=== PATIENT | male | born 1970 | race Caucasian/White ===

== ENCOUNTER 2016-08-07 13:10 | Emergency (ER) | payer OTHER ==
[2016-08-07 13:19] VITALS: BP 155/96; PULSE 69; TEMP 98.1; BMI 41.8
[2016-08-07] MEDS ORDERED: KETOROLAC TROMETHAMINE 60 MG/2 ML VIAL IM ONE (14:15)
[2016-08-07] MEDS ORDERED: KETOROLAC TROMETHAMINE 60 MG/2 ML VIAL ONE (14:18)
--- NOTE | 2016-08-07 14:32 | PDOC ---
History of Present Illness - General Chief Complaint: Pain Stated Complaint: LT ARM PAIN Time Seen by Provider: 08/07/16 13:30 History Source: Patient - History of Present Illness Occurred: reports: last week Severity: reports: moderate Upper Extremity Pain Location: left: shoulder Method of Injury: reports: other Past History - Past Medical History Allergies/Adverse Reactions: Allergies Allergy/AdvReac Type Severity Reaction Status Date / Time No Known Allergies Allergy Verified 08/07/16 13:17 Home Medications: Ambulatory Orders Ibuprofen [Motrin -] 800 mg PO Q6H #30 tablet 08/07/16 Asthma: Yes GI Disorders: Yes (DIVERTICULOSIS;DIVERTICULITIS) - Surgical History Orthopedic Surgery: Yes - Immunization History Immunization Up to Date: Yes - Psycho/Social/Smoking Cessation Hx Anxiety: No Suicidal Ideation: No Smoking History: Never smoked Have you smoked in the past 12 months: No Information on smoking cessation initiated: No Hx Alcohol Use: No Drug/Substance Use Hx: No Substance Use Type: None Hx Substance Use Treatment: No Review of Systems - Review of Systems Musculoskeletal: Yes: Joint Pain. No: Joint Swelling, Muscle Weakness Neurological: No: Numbness, Tingling *Physical Exam - Vital Signs Last Vital Signs Temp Pulse Resp BP Pulse Ox 98.1 F 69 18 155/96 100 08/07/16 13:17 08/07/16 13:17 08/07/16 13:17 08/07/16 13:17 08/07/16 13:17 - Physical Exam General Appearance: Yes: Appropriately Dressed. No: Apparent Distress HEENT: positive: Normal Voice Neck: positive: Supple Respiratory/Chest: positive: Lungs Clear, Normal Breath Sounds. negative: Respiratory Distress Cardiovascular: positive: Regular Rate, S1, S2 Extremity: positive: Normal Inspection, Normal Range of Motion, Tender. negative: Swelling Integumentary: positive: Dry, Warm Neurologic: positive: Fully Oriented, Alert, Normal Mood/Affect ED Treatment Course - Medications Given in the ED: ED Medications Discontinued Medications Generic Name Dose Route Start Last Admin Trade Name Freq PRN Reason Stop Dose Admin Ketorolac Tromethamine 60 mg 08/07/16 14:15 08/07/16 14:22 Toradol Injection - IM 08/07/16 14:16 60 mg ONCE ONE Administration Medical Decision Making - Medical Decision Making 08/07/16 14:29 45-year-old male, morbidly obese, here with left persistent left shoulder pain. Patient states while shoveling snow during storm a week ago, he developed pain to left shoulder blade radiating to arm. Has been taking Tylenol with no relief and states pain persists. No sensory changes or upper extremity weakness. Denies CP, SOB or diaphoresis. Patient well-appearing and stable with minimal tenderness to palpation to lateral aspect of left shoulder blade, no joint swelling or deformity, NVI. Most likely sprain. DC with pain control. To follow-up with PMD if pain persists 08/07/16 14:32 *DC/Admit/Observation/Transfer Diagnosis at time of Disposition: Shoulder sprain Qualifiers: Encounter type: initial encounter Shoulder sprain type: unspecified sprain Laterality: left Qualified Code(s): S43.402A - Unspecified sprain of left shoulder joint, initial encounter - Discharge Dispostion Disposition: HOME Condition at time of disposition: Good - Prescriptions Prescriptions: Ibuprofen [Motrin -] 800 mg PO Q6H #30 tablet - Patient Instructions Printed Discharge Instructions: Shoulder Sprain
== END 2016-08-07 14:42 | disposition home or self-care (01) ==
LOC: JERFT 13:10
PROC: 3E0233Z Introduction of Anti-inflammatory into Muscle, Percutaneous Approach (ICD-10-PCS; principal; 2016-08-07)
DX: S43.402A Unspecified sprain of left shoulder joint, initial encounter (principal); X50.0XXA Overexertion from strenuous movement or load, initial encounter; Y93.H1 Activity, digging, shoveling and raking; Y92.89 Other specified places as the place of occurrence of the external cause; E66.01 Morbid (severe) obesity due to excess calories; Z68.41 Body mass index [BMI] 40.0-44.9, adult
CPT/HCPCS: 99281-25